=== PATIENT | male | born 1985 | race American Indian/Alaskan Native ===

== ENCOUNTER 2017-05-24 13:34 | Emergency (ER) | payer SELFPAY ==
[2017-05-24 14:10] VITALS: BP 136/78
[2017-05-24] MEDS ORDERED: TYLENOL PO ONE (17:42)
[2017-05-24] MEDS ORDERED: MOTRIN PO ONE (17:42)
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
== END 2017-05-24 18:11 | disposition home or self-care (01) ==
LOC: ED 13:34
DX: M54.2 Cervicalgia (principal); M54.6 Pain in thoracic spine; J45.909 Unspecified asthma, uncomplicated; V49.49XA Driver injured in collision with other motor vehicles in traffic accident, initial encounter; Y93.89 Activity, other specified; Y99.8 Other external cause status; Y92.89 Other specified places as the place of occurrence of the external cause
CPT/HCPCS: 99282